=== PATIENT | male | born 1955 | race Caucasian/White ===

== ENCOUNTER 2023-03-24 08:49 | Outpatient (CLI) | payer MEDICARE, OTHER | END 2023-03-24 08:50 | disposition home or self-care (01) | LOC: SCSRAD 08:49 | PROVIDERS: ATTEND Family Medicine | DX: M19.031 Primary osteoarthritis, right wrist (principal); M19.032 Primary osteoarthritis, left wrist; M47.22 Other spondylosis with radiculopathy, cervical region; Z98.890 Other specified postprocedural states | CPT/HCPCS: 72052 ==